=== PATIENT | male | born 1955 | race Caucasian/White ===

== ENCOUNTER 2022-04-20 14:41 | Emergency (ER) | payer MEDICARE, BC ==
[2022-04-20 15:04] VITALS: BP 141/81; PULSE 65
[2022-04-20] MEDS ORDERED: Gabapentin 300 MG Cap PO ONE (15:52)
== END 2022-04-20 16:15 | disposition home or self-care (01) ==
LOC: JP.ED 14:41
DX: G89.29 Other chronic pain (principal); M54.50 Low back pain, unspecified; M51.36 Other intervertebral disc degeneration, lumbar region; M48.061 Spinal stenosis, lumbar region without neurogenic claudication; Z79.899 Other long term (current) drug therapy
CPT/HCPCS: 99283; A9270-GY